=== PATIENT | male | born 1945 ===

== ENCOUNTER 2018-07-12 07:58 | Observation (INO) | payer OTHER, BC ==
--- NOTE | 2018-07-12 13:24 | PDANEPAE ---
ANE History of Present Illness Laminectomy L3-5 ANE Past Medical History - Cardiovascular History Hx Hypertension: Yes Hx Arrhythmias: No Hx Chest Pain: No Hx Coronary Artery / Peripheral Vascular Disease: No Hx CHF / Valvular Disease: No Hx Palpitations: No - Pulmonary History Hx COPD: No Hx Asthma/Reactive Airway Disease: No Hx Recent Upper Respiratory Infection: No Hx Oxygen in Use at Home: No Hx Sleep Apnea: No Sleep Apnea Screening Result - Last Documented: Positive - Neurologic History Hx Cerebrovascular Accident: No Hx Seizures: No Hx Dementia: No - Endocrine History Hx Diabetes: No Hypothyroid: No Hyperthyroid: No Obesity: moderate - Renal History Hx Renal Disorders: No Renal History Comment: kidney stone - Liver History Hx Hepatic Disorders: No - Neurological & Psychiatric Hx Hx Neurological and Psychiatric Disorders: Yes Neurological / Psychiatric History Comment: tingling,spasms,hypersensitive to touch - Cancer History Hx Cancer: No - Congenital Disorder History Hx Congenital Disorders: No - GI History GERD: moderate Hx Gastrointestinal Disorders: Yes Gastrointestinal History Comment: partial gastrectomy - Other Health History Other Health History: none - Chronic Pain History Chronic Pain: Yes (back) - Surgical History Prior Surgeries: partial gastectomy 2018. EGD/colonoscopy 2018 ANE Review of Systems Review of Systems: - Exercise capacity METS (RN): 4 METS ANE Patient History - Allergies Allergies/Adverse Reactions: codeine Allergy (Verified 07/09/18 18:10) Unknown meperidine [From Demerol] Allergy (Verified 07/09/18 18:10) Rash - Home Medications Home Medications: Aleve 07/09/18 [Last Taken Unknown] Aspirin 07/09/18 [Last Taken Unknown] Atenolol 07/09/18 [Last Taken Unknown] Cholecalciferol (Vitamin D3) 07/09/18 [Last Taken Unknown] Losartan Potassium 07/09/18 [Last Taken Unknown] Prilosec 07/09/18 [Last Taken Unknown] Zetia 07/09/18 [Last Taken Unknown] - Anes Hx Anes Hx: no prior problems - Smoking Hx Smoking Status: Never smoked Marijuana use: No - Alcohol Use Alcohol Use: None - Family Anes Hx Family Anes Hx: none Family Hx Anesthesia Complications: none ANE Labs/Vital Signs - Vital Signs Blood Pressure: 132/89 Heart Rate: 53 Height: 170.18 cm Weight: 90.718 kg ANE Physical Exam - Airway Neck exam: FROM Mallampati Score: Class 2 Mouth exam: small mouth opening - Pulmonary Pulmonary: clear to auscultation - Cardiovascular Cardiovascular: regular rate and rhythym - ASA Status ASA Status: II ANE Anesthesia Plan Anesthesia Plan: general endotracheal anesthesia
[2018-07-12] MEDS ORDERED: LR 1,000 ML IV ONE (13:54)
[2018-07-12] MEDS ORDERED: ROCURONIUM 50 MG/5 ML VIAL ONE (14:17)
[2018-07-12] MEDS ORDERED: DEXAMETHASONE 4 MG/ML VIAL ONE (14:17)
[2018-07-12] MEDS ORDERED: fentaNYL 250 MCG/5 ML INJ ONE (14:17)
[2018-07-12] MEDS ORDERED: KETAMINE 200 MG/20 ML VIAL ONE (14:17)
[2018-07-12] MEDS ORDERED: PROPOFOL/EMULSION 500 MG/50 ML BOTTLE IV ONE (14:18)
[2018-07-12] MEDS ORDERED: THROMBIN (BOVINE) 5,000 UNIT VIAL TP ONE (14:22)
[2018-07-12] MEDS ORDERED: BUPIVACAINE/EPI 0.25% 30 ML SDV ONE ×2 (14:22→15:34)
[2018-07-12] MEDS ORDERED: BACITRACIN 50,000 UNITS/10 ML SYR IRR ONE ×3 (14:22→17:08)
[2018-07-12] MEDS ORDERED: CHLORHEXIDINE GLUC HIBICLENS 118 ML BTL TP ONE (14:22)
--- NOTE | 2018-07-12 14:35 | PDHPUP ---
History & Physical Update H&P update statement: This history and physical update is based on an assessment of the patient which was completed after admission or registration (within 24 hours), but prior to the surgery/procedure. H&P update: H&P reviewed & patient examined, no change in patient's condition since H&P completed
[2018-07-12] MEDS ORDERED: ceFAZolin 2 GM/DEXTROSE 100 ML IV ONE (14:41)
[2018-07-12] MEDS ORDERED: PHENYLEPHRINE HCL 100 MCG/ML SYR ONE (14:42)
[2018-07-12] MEDS ORDERED: PROPOFOL 200 MG/20 ML VIAL ONE ×2 (16:03)
[2018-07-12] MEDS ORDERED: ONDANSETRON 4 MG/2 ML VIAL ONE (17:02)
[2018-07-12] MEDS ORDERED: fentaNYL 100 MCG/2 ML INJ IVP PRN (17:39)
[2018-07-12] MEDS ORDERED: HYDROmorphONE/DILAUDID 1 MG/ML INJ IVP PRN ×2 (17:39→18:01)
[2018-07-12] MEDS ORDERED: NALOXONE HCL 0.4 MG/ML INJ IVP PRN (17:39)
[2018-07-12] MEDS ORDERED: fentaNYL 100 MCG/2 ML INJ ONE (17:42)
--- NOTE | 2018-07-12 18:00 | POSTOPPROG ---
Post Op Note Date of Operation: 07/12/18 Surgeon: Alexx Vargas Imaging Account Manager: MARINA Collins Anesthesiologist: MD Devin Anesthesia: GET(General Endotracheal), Local (Specify) Pre-op Diagnosis: lumbar stenosis L3/4 and L4/5 Post-op Diagnosis: lumbar stenosis L3/4 and L4/5 Indication: BLE pain, stenosis on MRI Procedure: L3/4 and L4/5 lami/decompression Findings: see op report Inf/Abcess present in the surg proc area at time of surgery?: No Depth: Deep Incisional (Fascial) EBL: 100-500 Total fluids administered: see anesthesia record Complications: none Bowel Protocol: Yes Clean Closure Performed: Yes
[2018-07-12] MEDS ORDERED: ONDANSETRON DISINTEGRATING 4 MG TAB PO PRN (18:01)
[2018-07-12] MEDS ORDERED: MAGNESIUM HYDROXIDE 30 ML UDCUP PO PRN (18:01)
[2018-07-12] MEDS ORDERED: LACTULOSE 20 GM/30 ML UDCUP PO PRN (18:01)
[2018-07-12] MEDS ORDERED: diphenhydrAMINE 25 MG CAP PO PRN (18:01)
[2018-07-12] MEDS ORDERED: BISACODYL 10 MG SUPP PR PRN (18:01)
[2018-07-12] MEDS ORDERED: POLYETHYLENE GLYCOL 3350 17 GM PKT PO PRN (18:01)
[2018-07-12] MEDS ORDERED: METHOCARBAMOL 750 MG TAB PO PRN (18:01)
[2018-07-12] MEDS ORDERED: ONDANSETRON 4 MG/2 ML VIAL IVP PRN (18:01)
--- NOTE | 2018-07-12 18:10 | SOAPPROG ---
SOAP Progress Note Assessment/Plan: Post Op Visit: S: Awake and alert. NAD. Pt with expected lower back pain O: AFVSS/PERRLA/EOMI no droop CN 2-12 grossly intact +lt touch 5/5 BUE/BLE = CDI A/P: 73 yo male that is s/p L3/4 and L4/5 lami -orders in place -no bending or twisting -PT/OT pending in am -call with any questions or concerns -pt seen by Dr Vargas as well Objective: Vital Signs Temp Pulse Resp BP Pulse Ox 36.4 C 53 L 18 132/89 H 97 07/12/18 14:00 07/12/18 15:35 07/12/18 14:00 07/12/18 15:35 07/12/18 14:00 ICD10 Worksheet Patient Problems: Problems Problem Status Onset Lumbar radicular pain Acute Lumbar stenosis Acute - ICD10 Problem Qualifiers (1) Lumbar stenosis (2) Lumbar radicular pain
[2018-07-12] MEDS ORDERED: NS 1,000 ML IV SCH (18:15)
--- NOTE | 2018-07-12 18:57 | POSTANESTH ---
Post Anesthetic Evaluation Cardiovascular Status: Similar to Pre-Op Cond Respiratory Status: Normal, Stable Level of Consciousness/Mental Status: Can Participate in Eval Pain Control: Adequate, Prn Tx Ordered Nausea/Vomiting Control: Adequate, Prn Tx Ordered Complications Possibly Related to Anesthesia: None Noted
--- NOTE | 2018-07-12 19:05 | GOP ---
[f rep st] OPERATIVE REPORT DATE OF OPERATION: 07/12/2018 SURGEON: Tamir Vargas MD NEUROSURGEON: Tamir Vargas MD. ROUTING MACHINE OPERATOR: Natan Collins PA-C PREOPERATIVE DIAGNOSIS: Neurogenic claudication, severe stenosis, L3-4, L4-5. POSTOPERATIVE DIAGNOSIS: Neurogenic claudication, severe stenosis, L3-4, L4-5. PROCEDURE PERFORMED: Lumbar laminectomy with bilateral medial facetectomy L3-4, L4-5 ([id number], [id number], microscope) FINDINGS: SPECIMENS: None. ESTIMATED BLOOD LOSS: 50 mL. 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 The distribution of pain was principally L4, but he also had components of L5 and S1 pain and he wanted to have surgery. The risk of CSF leak, nerve injury, continued symptoms was discussed. He knew that on occasion surgery fails to eliminate pain. He knew that sometimes a bigger surgery is required in cluding an instrumented fusion, but I did not think one was necessary. A straightforward lumbar lami nectomy at a high probability of success, and he wanted to proceed despite the known risks. He knew there was risk of infection and nerve injury as well. DESCRIPTION OF PROCEDURE: The patient was taken to the operating room and placed in the supine posit ion. General anesthesia was begun. He was flipped prone onto the Blaze frame. Care was taken to p ad all points of contact. His back was sterilely prepped and draped in the usual fashion. A localiz ing x-ray was taken. We made a midline incision that was 2 cm in length. The subcutaneous tissue wa s dissected using Bovie cautery down to the fascia and a subperiosteal dissection was made down the i nferior lamina of L3. The rostral lamina of L5 was exposed. A self-retaining retractor was placed. A localizing x-ray was taken. The operating microscope was introduced. We completely removed the L 4 spinous process. We removed only the inferior most portion of the L3 spinous process. We performe d a complete L4 laminectomy with a bilateral medial facetectomy at L4-5 and we performed an inferior L3 hemilaminectomy, but bilateral with bilateral medial facetectomies at L3-4. Under the microscope, we had decompressed centrally and worked our way laterally, both segments and working our way circum ferentially around the decompression, decompressing adjacent to the mid L5 pedicle and decompressing flush with the pedicle. We followed the L5 nerve root rostrally across the L4-5 disk and continued d ecompressing the adjacent thecal sac adjacent to the pars interarticularis of L4 up to the L4 pedicle , where we encountered the exiting L4 root and decompressed adjacent to the L4 pedicle all the way up to the inferior L3 pedicle. We got great decompressions on both sides. We identified the L4 nerve root traversing the L3-4 level and got great bilateral decompressions of the lateral thecal sac and f ollowed the L4 nerve root into its neural foramen bilaterally. We used foraminotomy Kerrisons to ope n the neural foramen and we were able to pass a ball-tip probe into each of the neural foramen for th e L4 root. We also used foraminotomy Kerrisons at L3-4 and performed foraminotomies there as well. It was not able to directly visualize the exiting L3 nerve, but I was able to palpate the L3 pedicle and follow the nerve with my ball-tip probe out into its neural foramen and we had good decompression s there. There was very severe spinal stenosis at L3-4 and L4-5, and this did take considerable time under the microscope to get a good decompression. We shot a final x-ray at the end of the case, chanell wing the decompression from the inferior L3 pedicle down to the mid L5 pedicle. We irrigated with an tibiotic saline solution and then closed the incision in multiple layers using Vicryl sutures. A run devan PDS was placed in the skin itself. The patient was reversed from anesthesia, extubated and sol sferred to the recovery room in stable condition. COMPLICATIONS: None. /[id number]/MODL
[2018-07-12] MEDS ORDERED: EZETIMIBE 10 MG TAB PO SCH (21:00)
[2018-07-12] MEDS: FAMOTIDINE 20 MG TAB PO SCH (22:00)
[2018-07-12] MEDS: SENNOSIDES/DOCUSATE SODIUM TAB PO SCH (22:00)
[2018-07-12] MEDS: GABAPENTIN 300 MG CAP PO SCH (22:00)
[2018-07-12] MEDS: ACETAMINOPHEN 500 MG TAB PO SCH (22:00)
[2018-07-12] MEDS: ceFAZolin 2 GM/DEXTROSE 100 ML IV SCH (22:01)
[2018-07-12] MEDS: oxyCODONE IR 5 MG TAB PO PRN (22:26)
[2018-07-13] MEDS: ceFAZolin 2 GM/DEXTROSE 100 ML IV SCH (05:57)
[2018-07-13] MEDS: ACETAMINOPHEN 500 MG TAB PO SCH ×2 (05:57→13:59)
[2018-07-13] MEDS: GABAPENTIN 300 MG CAP PO SCH ×2 (05:58→14:00)
--- NOTE | 2018-07-13 08:05 | NEUSURGPN ---
Date of Surgery: 07/12/18 Post Op Day: 1 Assessment/Plan: Assessment: 73 yo male that is s/p L3/4 and L4/5 lami POD#1 Plan: -Discharge to [facility] today, patient will stay local for the next week and see Dr Vargas in the office on Thursday -no bending or twisting -Patient reports leg pain improved but still has some residual tingling -PT/OT eval prior to discharge -pt seen by Dr Vargas as well Subjective: Doing well Objective: AxOx4 MAEx4 5/5 BLE Sensation intact to light touch BLE Steri strips saturated with SA fluid, no current drainage Neuro Check Frequency: per routine Urinary Catheter in Place: No - Physician Patient Seen by : Sam Neurosurgery Physical Exam - Vitals, I&O, Labs I and O 07/12/18 07/13/18 07/14/18 05:59 05:59 05:59 Intake Total 1945 Output Total 1095 Balance 850 Weight 90.718 kg Intake: Oral (ml) 680 IV Intake (ml) 800 IV Infused (ml) 465 Ns 1,000 ml @ 75 mls/hr 250 IV CONT EFREN Rx#: [id number] ceFAZolin 2 GM/DEXTROSE 100 100 ml @ 200 mls/hr IV ONCALL ONE Rx#:[id number] ceFAZolin 2 GM/DEXTROSE 115 100 ml @ 200 mls/hr IV Q8HRS [facility] Rx#:[id number] Output: Urine (ml) 1075 Urinal 1075 Estimated Blood Loss (ml) 20 Emesis (ml) 0 Other: Number of Voids Urinal 1 Vital Signs Temp Pulse Resp BP Pulse Ox 36.6 C 53 L 18 144/85 H 97 07/13/18 07:21 07/13/18 07:21 07/13/18 07:21 07/13/18 07:21 07/13/18 07:21 ICD10 Worksheet Patient Problems: Problems Problem Status Onset Lumbar radicular pain Acute Lumbar stenosis Acute
[2018-07-13] MEDS ORDERED: PANTOPRAZOLE SODIUM 40 MG TAB PO SCH (09:00)
[2018-07-13] MEDS ORDERED: ATENOLOL 50 MG TAB PO SCH (09:00)
[2018-07-13] MEDS: FAMOTIDINE 20 MG TAB PO SCH (09:28)
[2018-07-13] MEDS: SENNOSIDES/DOCUSATE SODIUM TAB PO SCH (09:31)
[2018-07-13] MEDS ORDERED: PNEUMOC 13-VAL CONJ-DIP CRM/PF 0.5 ML SYR (PREVNAR 13) IM ONE (09:55)
[2018-07-13] MEDS: oxyCODONE IR 5 MG TAB PO PRN ×2 (10:28→16:54)
[2018-07-13 15:11] VITALS: BP 108/67
--- NOTE | 2018-07-13 16:42 | ASMTCMCOM ---
CM Note CM Note Notes: Pt had planned laminectomy. Pt resides in [place] and will d/c to a local hotel for approx. one week. PT rec outpatient, OT rec home. Pt to follow up with nsg Thursday. 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 By late in the business day pt does not have a walker for d/c, pt has to borrow a [facility] case management walker and is provided details on how to return it. Date Signed: 07/13/2018 04:41 PM Electronically Signed By:CATARINO Perdomo
[2018-07-15] MEDS ORDERED: ENOXAPARIN 40 MG/0.4 ML SYR SC SCH (09:00)
--- NOTE | 2018-07-21 08:33 | GDS ---
[f rep st] DISCHARGE SUMMARY PRIMARY DIAGNOSIS: Neurogenic claudication, severe stenosis, L3-4, L4-5. OPERATION/PROCEDURE: Lumbar laminectomy with bilateral medial facetectomy at L3-4, L4-5 that occurre d with Dr. Gary Vargas at [facility] on 07/12/2018. 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 He presented t o the office with terrible bilateral leg pain, neurogenic claudication with critical stenosis at L3-4 , L4-5, and came in to see Dr. Vargas with this terrible pain. The distribution of pain was principa lly L4, but it could also have a component of L5 and S1 pain, and the patient wished to have surgery. Surgery was discussed in detail including the risks, and patient understood and wished to proceed. He underwent the above-mentioned procedure. He tolerated it well. He was admitted postoperatively a nd was seen on a daily basis. On postoperative day #1, he met criteria for discharge. 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 He was discharged to a local hotel and will follow up with us next week, the week after his surgery, for postoperative visit. He was instructed on no bending or twisting and was instructe d when to call or return. DISCHARGE MEDICATIONS: Please see med rec form for discharge medications. CONSULTS: None. COMPLICATIONS: None. DISCHARGE CONDITION: Stable and improved. DISCHARGE INSTRUCTIONS: Standard discharge instructions were given to the patient following lumbar d ecompression surgery. We talked about worsening symptoms, new pain, weakness, numbness, tingling, lo ss of bowel or bladder control, problems with gait or balance. We talked about when to follow up nikkie damian. He already has a scheduled appointment in 1 week for a postoperative visit. /[id number]/MODL
== END 2018-07-13 16:56 | disposition home or self-care (01) ==
LOC: EDSEX 13:39 → F3N 13:39
PROVIDERS: ADMIT Neurological Surgery; ATTEND Neurological Surgery
DX: M48.062 Spinal stenosis, lumbar region with neurogenic claudication (principal); Z23 Encounter for immunization
CPT/HCPCS: 63047; 63048; 76000; 90670; 97116; 97161; 97166; 97530; 97535; G0009; J0690; J1100; J2370; J2405; J2704; J3010